=== PATIENT | male | born 1995 | race African-American/Black ===

== ENCOUNTER 2016-07-24 21:51 | Emergency (ER) | payer OTHER ==
[~2016-07-24] VITALS: Ht 177.8 cm; Wt 77.0 kg
[~2016-07-24 21:51] MED LIST: NOHOMEMEDS
[2016-07-25] MEDS ORDERED: NAPROSYN500 MG PO (00:03)
[2016-07-25] MEDS ORDERED: FLEXERIL10 MG PO (00:03)
[2016-07-25 00:35] VITALS: BP 121/76
== END 2016-07-25 01:04 | disposition home or self-care (01) ==
LOC: EME 21:51
DX: S09.90XA Unspecified injury of head, initial encounter (principal); S00.83XA Contusion of other part of head, initial encounter; M54.2 Cervicalgia; S46.912A Strain of unspecified muscle, fascia and tendon at shoulder and upper arm level, left arm, initial encounter; Y04.8XXA Assault by other bodily force, initial encounter
CPT/HCPCS: 70450; 72125; 73030; 99281; 99285; J1885

== ENCOUNTER 2017-05-16 03:18 | Emergency (ER) | payer OTHER ==
[~2017-05-16] VITALS: Ht 170.2 cm; Wt 82.8 kg
[~2017-05-16 03:18] MED LIST changes: +FLEXERIL10 MG PO; +NAPROSYN500 MG PO
[2017-05-16 03:29] VITALS: BP 120/67
== END 2017-05-16 04:44 | disposition home or self-care (01) ==
LOC: EME 03:18
PROC: 0HQLXZZ Repair Left Lower Leg Skin, External Approach (ICD-10-PCS; principal; 2017-05-16)
DX: S81.812A Laceration without foreign body, left lower leg, initial encounter (principal); W25.XXXA Contact with sharp glass, initial encounter
CPT/HCPCS: 99281; 99283